=== PATIENT | female | born 1985 | race Caucasian/White ===

== ENCOUNTER → 2023-12-31 | Emergency (ER) | payer BC, OTHER ==
[~2023-12-31] MED LIST: FENTANYL CITR 100 MCG/2 ML ONE; HYDROMORPHONE HCL 1 MG/ML INJ ONE; KETOROLAC 30 MG/ML INJ ONE; MAGNESIUM SULFATE 1 gm IVPB 1 GM/100 ML BAG IV ONE; MORPHINE 4 MG/ML SYR ONE; NA CHLORIDE 0.9% 1,000 ML ONE; ONDANSETRON 4 MG/2 ML VIAL ONE; TAMSULOSIN 0.4 MG SR CAP ONE
--- OUTSIDE RECORDS SUMMARY | 2023-12-31 11:14 | XMS REPORT | Continuity of Care Document ---
Author Name Unknown Address [address] [facility] [address] [place] [address] [facility] thconnect Address [address] [facility] [address] [place] [address] Care Team Providers Care Developer Programmer Name Role Phone PCP, PATIENT DOES NOT HAVE A Primary Care Physic jessica Unavailable Brenda Morales Attending Clinician Unknown, Attending Attending Clinician Unavailab BRENDA Dickerson Attending Clinician Unavailable Doctor Unassigned, Angwin Attending Clinician U Luciana Sibley Attending Clinician Unavailable Physician, No Primary or Family Admitting Clinic jessica Unavailable Payers Payer Name Policy Type Policy Number Effective Date Expirati on Date Source Allergies, Adverse Reactions, Alerts Allergy Name Allergy Type Status Severity Reaction(s) Onset Date Inactive Date Treating Clinician Comments Source No Known Allergie s DA Active U 12-13 00:00: 00 [facility] No Known Allergie s DA Active U 12-13 00:00: 00 [facility] NO KNOWN ALLERGIE S Drug Class Active [facility] Social History Social Habit Start Date Stop Date Quantity Comments Source Sexual orientation U [facility] Sex Assigned At 1985 00:00:00 1985 00:00:00 [facility] Smoking Status Start Date Stop Date Source Tobacco smoking consumption unknown [facility] Medications Ordered Medication Name Filled Medication Name Start Date Stop Date Current Medication? Ordering Clinician Indication Dosage Frequency Signature (SIG) Comments Components Source cefdinir 300 mg capsule -16 00:00: 00 01-07 04:59 :00 Yes [id number] 300mg Take 1 capsule by mouth every 12 (twelve) hours for 7 days. [facility] Vital Signs Vital Name Observation Time Observation Value Comments S ladonnace Systolic blood pressure 2023-12-31 14:33:00 106 mm[Hg[facility] Diastolic blood pressure 2023-12-31 14:33:00 73 mm[Hg] [facility] Heart rate 2023-12-31 14:33:00 52 /min [facility] Body temperature 2023-12-31 14:33:00 36.5 Michelle [facility] Respiratory rate 2023-12-31 14:33:00 20 /min [facility] Body height 2023-12-31 14:33:00 162.6 cm [facility] Body weight 2023-12-31 14:33:00 53.269 kg [facility] BMI 2023-12-31 14:33:00 20.16 kg/m2 [facility] Oxygen saturation in Arterial blood by Pulse oximetry 2023-12-31 14:33:00 100 /min [facility] Procedures Procedure Date / Time Performed Performing Clinicia n Source POCT URINALYSIS 2023-12-31 14:48:00 [facility] 2023-12-31 14:25:55 Docto r Unassigned, Angwin [facility] Plan of Care Planned Activity Planned Date Details Comments Source Encounters Start Date/Time End Date/Time Encounter Type Admission Type Attending Clinicians Care Facility Care Department Encounter ID Source 2023-12-31 09:20:00 2023-12-31 09:40:00 Urgent Care Brenda Simpson Unknown, Attending [facility] LAURA RESENDEZ[facility] [id number] [facility] 2023-12-31 09:20:00 2023-12-31 09:20:00 Outpatient BRENDA VALENTE [facility] [id number] [facility] 2023-12-31 00:00:00 2023-12-31 00:00:00 Orders Only Doctor Unassigned, Angwin [facility] [id number] [facility] 2020-12-30 12:00:00 2020-12-30 12:00:00 Outpatient Luciana Valencia [facility] [id number] [facility] Results Test Description Test Time Test Comments Results Result Co mments Source [facility]
[2023-12-31 11:48] LABS: Absolute Basophils 0.1 K/uL (0-0.5); Absolute Lymphocytes (CBC) 1.1 K/uL (0.7-4.9); Absolute Monocytes 0.8 K/uL (0.1-1.3); Absolute Neutrophil 10.8 K/uL (1.8-8.0); Basophils % 0.4 % (0-1.3); Eosinophils % 0.1 % (0-4.4); Hematocrit 39.3 % (36.0-45.0); Hemoglobin 13.4 g/dL (12.0-15.0); Lymphocytes % 8.3 % (15.3-44.8); MCH 31.6 pg (27.0-35.0); MCHC 34.2 g/dL (32.0-36.0); MCV 92.4 fL (80-100); MPV 7.6 fL (7.6-11.3); Monocytes % 6.3 % (3.3-12.3); Neutrophils % 84.9 % (41.7-73.7); Platelets 259 thou/uL (152-406); RBC Red Blood Cell Count 4.25 M/uL (3.86-4.86); Red Cell Distribution Width 12.9 % (12.1-15.2)
[2023-12-31 11:49] LABS: Sqamous Epithelial <5 /HPF (None Seen); Urine Bacteria None Seen /HPF (<20); Urine Bilirubin NEGATIVE (Negative); Urine Blood Trace (Negative); Urine Clarity Clear (Clear); Urine Color Colorless (Yellow); Urine Culture Reflex Order NOT NEEDED; Urine Glucose NEGATIVE (Negative); Urine Ketones 1+ (Negative); Urine Microscopic Reflex YN ORDER UMIC; Urine Mucus Slight /HPF (None Seen); Urine Nitrite NEGATIVE (Negative); Urine Protein NEGATIVE (Negative); Urine RBC <5 /HPF (None Seen); Urine Urobilinogen Normal (Normal); Urine WBC <5 /HPF (<5)
[2023-12-31 12:05] LABS: Albumin 3.9 g/dL (3.4-5.0); Albumin/Globulin Ratio 1.1 (1.1-1.8); Anion Gap 12.9 mEq/L (5.0-15.0); Bilirubin Total 0.7 mg/dL (0.2-1.0); Globulin 3.4 g/dL (2.3-3.5); Potassium 3.9 mEq/L (3.5-5.1); Protein, Total 7.3 g/dL (6.4-8.2)
--- NOTE | 2023-12-31 12:19 | RAD REPORT ---
EXAM DESCRIPTION: CTAbdomen Pelvis W Contrast - 12/31/2023 12:09 pm CLINICAL HISTORY: Abdominal pain. FLANK PAIN COMPARISON: No comparisons TECHNIQUE: Biphasic CT imaging of the abdomen and pelvis was performed with 100 ml non-ionic IV cont rast. All CT scans are performed using dose optimization technique as appropriate and may include automated exposure control or mA/KV adjustment according to patient size. FINDINGS: The lung bases are clear. The liver, spleen, pancreas, adrenal glands and left kidney are within normal limits. 3 mm calculus i s seen at the right UVJ resulting and moderate right hydronephrosis and hydroureter. No bowel obstruction, free air, free fluid or abscess. IUD is present in the uterus. The appendix is normal. No evidence of significant lymphadenopathy. Trace pelvic free fluid. 6 cm left ovarian cyst suspected. No suspicious bony findings. IMPRESSION: 3 mm stone right UVJ resulting in moderate right hydronephrosis and hydroureter. 6 cm left ovarian cyst.
--- NOTE | 2023-12-31 14:16 | ER ---
Nurse's Notes [facility] Name: Blanche Mahajan Age: 38 yrs Sex: Female : 1985 Arrival Date: 12/31/2023 Time: 11:11 Bed 3 Private MD: Diagnosis: Calculus of kidney with calculus of ureter Presentation: 12/30 11:23 Chief complaint: Patient states: right lower back pain that began this morning. Pt aa5 restless and uncomfortable during triage. Pt also reports nausea. 11:23 Acuity: TEENA 2 aa5 11:23 Coronavirus screen: nausea. Ebola Screen: Patient denies travel to an Ebola-affected [facility] area in the 21 days before illness onset. Initial Sepsis Screen: Does the patient meet any 2 criteria? HR > 90 bpm. Does the patient have a suspected source of infection? No. Patient's initial sepsis screen is negative. Risk Assessment: Do you want to hurt yourself or someone else? Patient reports no desire to harm self or others. Onset of symptoms was December 31, 2023. 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 - Social history:: Smoking status: Patient denies any tobacco usage or history of. Screenin:37 [facility] ED Fall Risk Assessment (Adult) History of falling in the last 3 months, mb9 including since admission No falls in past 3 months (0 pts) Confusion or Disorientation No (0 pts) Intoxicated or Sedated No (0 pts) Impaired Gait No (0 pts) Mobility Assist Device Used No (0 pt) Altered Elimination No (0 pt) Score/Fall Risk Level 0 - 2 = Low Risk Oriented to surroundings, Maintained a safe environment, Educated pt \T\ family on fall prevention, incl call for assistance when getting out of bed. Abuse screen: Denies threats or abuse. Nutritional screening: No deficits noted. Tuberculosis screening: No symptoms or risk factors identified. Assessment: 11:36 General: Appears uncomfortable, Behavior is cooperative, crying. Pain: Complains of mb9 pain in back Pain radiates to right flank and RLQ Pain currently is 10 out of 10 on a pain scale. Pain began suddenly. Neuro: Terrazas Agitation-Sedation Scale (RASS): 0 - Alert and Calm Level of Consciousness is awake, alert, obeys commands, Oriented to person, place, time, situation, Appropriate for age. Cardiovascular: Patient's skin is warm and dry. Respiratory: Airway is patent Respiratory effort is even, unlabored, Respiratory pattern is regular, symmetrical, Breath sounds are clear bilaterally. GI: Abdomen is flat, non-distended, Bowel sounds present X 4 quads. Abd is soft X 4 quads Reports nausea. : Denies burning with urination. EENT: No signs and/or symptoms were reported regarding the EENT system. Derm: Skin is pink, warm \T\ dry. Musculoskeletal: Range of motion: intact in all extremities. 12:27 Reassessment: No changes from previously documented assessment. Patient and/or family mb9 updated on plan of care and expected duration. Pain level reassessed. Patient is alert, oriented x 3, equal unlabored respirations, skin warm/dry/pink. 13:16 Reassessment: No changes from previously documented assessment. Patient and/or family mb9 updated on plan of care and expected duration. Pain level reassessed. Patient is alert, oriented x 3, equal unlabored respirations, skin warm/dry/pink. 14:22 Reassessment: No changes from previously documented assessment. Patient and/or family mb9 updated on plan of care and expected duration. Pain level reassessed. Patient is alert, oriented x 3, equal unlabored respirations, skin warm/dry/pink. Vital Signs: 11:23 BP 123 / 89; Pulse 109; Resp 20 S; Temp 97(TE); Pulse Ox 100% on R/A; Weight 52.62 kg aa5 (R); Height 5 ft. 4 in. (R); 12:26 BP 118 / 78; Pulse 55; Resp 18; Pulse Ox 100% on R/A; mb9 13:17 BP 104 / 74; Pulse 48; Resp 18; Pulse Ox 100% on R/A; mb9 14:13 BP 106 / 74; Pulse 58; Resp 16; Pulse Ox 100% on R/A; Pain 2/10; mb9 11:23 Body Mass Index 19.91 (52.62 kg, 162.56 cm) aa5 14:13 Pain Scale: Adult mb9 ED Course: 11:12 Patient arrived in ED. im 11:21 Jessica Abraham PA-C is PHCP. sb4 11:22 Mike Galvez MD is Attending Physician. sb4 11:23 Arm band placed on. aa5 11:25 Irina Henson, RN is Primary Nurse. mb9 11:27 Triage completed. aa5 11:37 Placed in gown. Bed in low position. Call light in reach. Side rails up X 1. Client mb9 placed on continuous cardiac and pulse oximetry monitoring. NIBP monitoring applied. machine filler on. 11:38 Provided Education on: press call light if needing anything. mb9 11:38 No provider procedures requiring assistance completed. mb9 11:39 Urine collected: clean catch specimen, clear. mc5 11:43 Urinalysis w/ reflexes Sent. ld1 11:43 Test, Urine Sent. ld1 11:43 CMP Sent. ld1 11:43 CBC with Diff Sent. ld1 11:44 Inserted saline lock: 20 gauge in left antecubital area, using aseptic technique. Blood ld1 collected. 12:[address] via stretcher. mb9 12:11 CT Abd/Pelvis - IV Contrast Only In Process Unspecified. EDMS 12:47 Assisted to bedside commode. mb9 14:15 Asael Haines MD is Referral Physician. sb4 14:23 IV discontinued, intact, bleeding controlled, No redness/swelling at site. Pressure mb9 dressing applied. Administered Medications: 11:40 Drug: NS 0.9% IV 1000 ml IV at 1 bolus Per protocol; 1000 mL bolus Route: IV; Rate: 1 mb9 bolus; Site: left antecubital; 12:47 Follow up: Response: No adverse reaction; IV Status: Completed infusion mb9 11:40 Drug: Ondansetron IVP 4 mg IVP once; over 2 minutes Route: IVP; Site: left antecubital; mb9 12:18 Follow up: Response: No adverse reaction mb9 11:42 Drug: morphine IVP or IV 4 mg IVP once over 4 mins Route: IVP; Infused Over: 4 mins; mb9 Site: left antecubital; 12:18 Follow up: Response: No adverse reaction mb9 12:18 Drug: HYDROmorphone IVP 1 mg IVP once Route: IVP; Site: left antecubital; mb9 12:47 Follow up: Response: No adverse reaction mb9 12:26 Drug: Flomax PO 0.4 mg PO once Route: PO; mb9 12:46 Follow up: Response: No adverse reaction mb9 12:26 Drug: Magnesium Sulfate IVPB 1 grams IVPB once over 1 hrs Route: IVPB; Infused Over: 1 mb9 hrs; Site: left antecubital; 13:53 Follow up: Response: No adverse reaction; IV Status: Completed infusion mb9 12:46 Drug: Ketorolac IVP 30 mg IVP once Route: IVP; Site: left antecubital; mb9 13:17 Follow up: Response: No adverse reaction mb9 13:53 Drug: NS 0.9% IV 1000 ml IV at 1 bolus Per protocol; 1000 mL bolus Route: IV; Rate: 1 mb9 bolus; Site: left antecubital; 14:22 Follow up: Response: No adverse reaction; IV Status: Completed infusion mb9 14:02 Not Given (Patient Refused): fentanyl (pf)50 mcg IVP once mb9 Medication: 11:37 VIS not applicable for this client. mb9 Outcome: 14:15 Discharge ordered by . sb4 14:23 Discharged to home ambulatory, with family, mb9 14:23 Condition: stable 14:23 Discharge instructions given to patient, family, Instructed on discharge instructions, follow up and referral plans. Demonstrated understanding of instructions, follow-up care, medications, Prescriptions given X 1, 14:23 Patient left the ED. mb9 Signatures: Dispatcher [employer] EDMS Margaret Thorne RN RN aa5 Radha Worley RN RN [email or web address] Jessica Abraham PA-C PA-C sb4 Irina Henson RN RN mb9 Lula Shepherd Moriah mc5
--- NOTE | 2023-12-31 14:16 | EDPHYS ---
Physician Documentation [facility] Name: Blanche Mahajan Age: 38 yrs Sex: Female : 1985 Arrival Date: 12/31/2023 Time: 11:11 Bed 3 Private MD: ED Physician Mike Galvez HPI: 12/30 11:48 This 38 yrs old Female presents to ER via Ambulatory with complaints of Possible Kidney sb4 Stone. 11:48 Patient states she woke up this morning with severe right-sided flank pain that sb4 radiates to her right lower quadrant. She does endorse nausea, denies any vomiting or fever. Denies any history of kidney stones. Denies any hematuria. States that she has had urinary frequency/urgency but no dysuria. 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 - Social history:: Smoking status: Patient denies any tobacco usage or history of. ROS: 11:48 Constitutional: Negative for fever, chills, and weight loss, sb4 11:48 Abdomen/GI: Positive for nausea, 11:48 Back: Positive for flank pain, on the right, 11:48 : Positive for urinary frequency, 11:48 All other systems are negative, Exam: 11:48 Head/Face: Normocephalic, atraumatic. Eyes: Extra-ocular motions intact. Periorbital sb4 areas with no swelling, redness, or edema. ENT: Mucous membranes moist. Cardiovascular: Regular rate and rhythm with a normal S1 and S2. Respiratory: Lungs have equal breath sounds bilaterally, clear to auscultation and percussion. No rales, rhonchi or wheezes noted. No increased work of breathing, no retractions or nasal flaring. Abdomen/GI: Soft, non-tender, no distension. Skin: Warm, dry with normal turgor. Normal color with no rashes, no lesions, and no evidence of cellulitis. MS/ Extremity: Pulses equal, no cyanosis. Neurovascular intact. Full, normal range of motion. Neuro: Awake and alert, GCS 15, oriented to person, place, time, and situation. Motor strength 5/5 in all extremities. Sensory grossly intact. 11:48 Constitutional: The patient appears alert, awake, in obvious pain, uncomfortable, 11:48 Back: CVA tenderness, that is moderate, is noted on the right, Vital Signs: 11:23 BP 123 / 89; Pulse 109; Resp 20 S; Temp 97(TE); Pulse Ox 100% on R/A; Weight 52.62 kg aa5 (R); Height 5 ft. 4 in. (R); 12:26 BP 118 / 78; Pulse 55; Resp 18; Pulse Ox 100% on R/A; mb9 13:17 BP 104 / 74; Pulse 48; Resp 18; Pulse Ox 100% on R/A; mb9 14:13 BP 106 / 74; Pulse 58; Resp 16; Pulse Ox 100% on R/A; Pain 2/10; mb9 11:23 Body Mass Index 19.91 (52.62 kg, 162.56 cm) aa5 14:13 Pain Scale: Adult mb9 MDM: 11:23 Patient medically screened. sb4 11:48 Differential diagnosis: Nephrolithiasis, ureterolithiasis, hydronephrosis, sb4 pyelonephritis, UTI. 12:28 Data reviewed: vital signs, nurses notes, lab test result(s), radiologic studies, and sb4 as a result, I will discharge patient. Counseling: I had a detailed discussion with the patient and/or guardian regarding the historical points, exam findings, and any diagnostic results supporting the discharge/admit diagnosis, lab results, radiology results, to return to the emergency department if symptoms worsen or persist or if there are any questions or concerns that arise at home. 12/30 11:34 Order name: CBC with Diff; Complete Time: 11:50 sb4 12/30 11:34 Order name: CMP; Complete Time: 12:06 sb4 12/30 11:34 Order name: Test, Urine; Complete Time: 11:48 sb4 12/30 11:34 Order name: Urinalysis w/ reflexes; Complete Time: 11:50 sb4 12/30 11:34 Order name: CT Abd/Pelvis - IV Contrast Only; Complete Time: 12:20 sb4 12/30 11:34 Order name: IV Saline Lock; Complete Time: 11:43 sb4 12/30 11:34 Order name: Labs collected and sent; Complete Time: :43 sb4 Administered Medications: 11:40 Drug: NS 0.9% IV 1000 ml IV at 1 bolus Per protocol; 1000 mL bolus Route: IV; Rate: 1 mb9 bolus; Site: left antecubital; 12:47 Follow up: Response: No adverse reaction; IV Status: Completed infusion mb9 11:40 Drug: Ondansetron IVP 4 mg IVP once; over 2 minutes Route: IVP; Site: left antecubital; mb9 12:18 Follow up: Response: No adverse reaction mb9 11:42 Drug: morphine IVP or IV 4 mg IVP once over 4 mins Route: IVP; Infused Over: 4 mins; mb9 Site: left antecubital; 12:18 Follow up: Response: No adverse reaction mb9 12:18 Drug: HYDROmorphone IVP 1 mg IVP once Route: IVP; Site: left antecubital; mb9 12:47 Follow up: Response: No adverse reaction mb9 12:26 Drug: Flomax PO 0.4 mg PO once Route: PO; mb9 12:46 Follow up: Response: No adverse reaction mb9 12:26 Drug: Magnesium Sulfate IVPB 1 grams IVPB once over 1 hrs Route: IVPB; Infused Over: 1 mb9 hrs; Site: left antecubital; 13:53 Follow up: Response: No adverse reaction; IV Status: Completed infusion mb9 12:46 Drug: Ketorolac IVP 30 mg IVP once Route: IVP; Site: left antecubital; mb9 13:17 Follow up: Response: No adverse reaction mb9 13:53 Drug: NS 0.9% IV 1000 ml IV at 1 bolus Per protocol; 1000 mL bolus Route: IV; Rate: 1 mb9 bolus; Site: left antecubital; 14:22 Follow up: Response: No adverse reaction; IV Status: Completed infusion mb9 14:02 Not Given (Patient Refused): fentanyl (pf)50 mcg IVP once mb9 Disposition: 19:14 Co-signature as Attending Physician, Mike Galvez MD I agree with the assessment and cp3 plan of care. Disposition Summary: 12/31/23 14:15 Discharge Ordered Notes: Location: Home sb4 Problem: new sb4 Symptoms: have improved sb4 Condition: Stable sb4 Diagnosis - Calculus of kidney with calculus of ureter sb4 Followup: sb4 - With: Asael Haines MD - When: As needed - Reason: Recheck today's complaints, Re-evaluation by your physician Discharge Instructions: - Discharge Summary Sheet sb4 - Kidney Stones sb4 - Low-Purine Eating Plan sb4 Forms: - Work release form hb - Thank You Letter sb4 - Prescription Opioid Use sb4 - Patient Portal Instructions sb4 - Leadership Thank You Letter sb4 Prescriptions: - Tramadol 50 mg Oral Tablet - take 1 tablet ORAL route every 8 hours as needed; 12 tablet; Refills: 0, sb4 Product Selection Permitted Signatures: Dispatcher [employer] Mike Purvis MD MD cp3 Margaret Thorne, RN RN aa5 Jessica Abraham, PALonnyC PALonnyC sb4 Irina Henson RN RN mb9
[2023-12-31 14:38] VITALS: BP 106/74; TEMP 97; O2SAT 100
== END ==
LOC: ER 11:11
DX: N20.2 Calculus of kidney with calculus of ureter (principal)
CPT/HCPCS: 96365; 96361; 85025; 81001; 36415; 81025; 80053; 74177; 96375; 99285; Q9967; J3475; J3010; J1170; J2405; J7030 ×2

== ENCOUNTER → 2024-01-01 | Emergency (ER) | payer BC ==
[~2024-01-01] MED LIST changes: -FENTANYL CITR 100 MCG/2 ML ONE; -HYDROMORPHONE HCL 1 MG/ML INJ ONE; +LORAZEPAM 1 MG TABLET ONE; -MAGNESIUM SULFATE 1 gm IVPB 1 GM/100 ML BAG IV ONE; +PROMETHAZINE INJ 25 MG/ML AMP ONE; -TAMSULOSIN 0.4 MG SR CAP ONE
--- OUTSIDE RECORDS SUMMARY | 2024-01-01 10:48 | XMS REPORT | Continuity of Care Document ---
Author Name Unknown Address [address] [facility]. [address] [place] [address] [facility] thconnect Address [address] [facility] [address] [place] [address] Care Team Providers Care Certified Medical Aide Name Role Phone PCP, PATIENT DOES NOT HAVE A Primary Care Physic jessica Unavailable Brenda Morales Attending Clinician Unknown, Attending Attending Clinician Unavailab BRENDA Dickerson Attending Clinician Unavailable Doctor Unassigned, [place] Attending Clinician U navailosmany Javier Attending Clinician Unavailable Luciana Aguilera Attending Clinician Unavailable Adi_Maria E Attending Clinician Unavailable L_Penonur Admitting Clinician Unavailable Physician, No Primary or Family Admitting Clinic jessica Unavailable Adi_Maria E Admitting Clinician Unavailable Payers Payer Name Policy Type Policy Number Effective Date Expirati on Date Source [place] [id number] 2022 00:00:00 Problems Condition Name Condition Details Condition Category Status Onset Date Resolution Date Last Treatment Date Treating Clinician Comments Source Paronychia of finger Paronychia of Finger Problem Active 12-15 00:00: 00 [facility] Abscess of skin and/or subcutaneo us tissue Abscess of Skin And/or Subcutaneo us Tissue Problem Active 12-15 00:00: 00 [facility] Dog bite - wound Dog Bite - Wound Problem Active 12-15 00:00: 00 [facility] Allergies, Adverse Reactions, Alerts Allergy Name Allergy Type Status Severity Reaction(s) Onset Date Inactive Date Treating Clinician Comments Source No Known Allergie s DA Active U 12-13 00:00: 00 [facility] No Known Allergie s DA Active U 12-13 00:00: 00 [facility] NO KNOWN ALLERGIE S Drug Class Active [facility] Social History Social Habit Start Date Stop Date Quantity Comments Source Sexual orientation U [facility] Sex Assigned At 1985 00:00:00 1985 00:00:00 [facility] Smoking Status Start Date Stop Date Source Never Smoker [facility] Tobacco smoking consumption unknown [facility] Medications Ordered Medication Name Filled Medication Name Start Date Stop Date Current Medication? Ordering Clinician Indication Dosage Frequency Signature (SIG) Comments Components Source cefdinir 300 mg capsule 12-30 00:00: 00 01-07 04:59 :00 Yes [id number] 300mg Take 1 capsule by mouth every 12 (twelve) hours for 7 days. [facility] Kenalog 40 mg/mL suspension for injectionTa ke 40 mg by injection route. Kenalog 40 mg/mL suspension for injectionTa ke 40 mg by injection route. 2022-10 11:53: 00 No Kenalog 40 mg/mL suspension for injectionT carlos alberto 40 mg by injection route. [facility] mupirocin 2 % topical ointment APPLY SMALL AMOUNT TOPICALLY TO THE AFFECTED AREA THREE TIMES DAILY mupirocin 2 % topical ointment APPLY SMALL AMOUNT TOPICALLY TO THE AFFECTED AREA THREE TIMES DAILY No mupirocin 2 % topical ointment APPLY SMALL AMOUNT TOPICALLY TO THE AFFECTED AREA THREE TIMES DAILY [facility] Zithromax Z-Nando 250 mg tablet TAKE 2 TABLETS (500 MG) BY ORAL ROUTE ONCE DAILY FOR 1 DAY THEN 1 TABLET (250 MG) BY ORAL ROUTE ONCE DAILY FOR 4 DAYS Zithromax Z-Nando 250 mg tablet TAKE 2 TABLETS (500 MG) BY ORAL ROUTE ONCE DAILY FOR 1 DAY THEN 1 TABLET (250 MG) BY ORAL ROUTE ONCE DAILY FOR 4 DAYS No Zithromax Z-Nando 250 mg tablet TAKE 2 TABLETS (500 MG) BY ORAL ROUTE ONCE DAILY FOR 1 DAY THEN 1 TABLET (250 MG) BY ORAL ROUTE ONCE DAILY FOR [address] [facility] albuterol sulfate HFA 90 mcg/actuati on aerosol inhaler INHALE 2 PUFFS BY MOUTH EVERY 4 HOURS NEEDED albuterol sulfate HFA 90 mcg/actuati on aerosol inhaler INHALE 2 PUFFS BY MOUTH EVERY 4 HOURS NEEDED No albuterol sulfate HFA 90 mcg/actuat ion aerosol inhaler INHALE 2 PUFFS BY MOUTH EVERY [address] [facility] Augmentin 875 mg-125 mg tablet Take 1 tablet every 12 hours by oral route for 7 days. Augmentin 875 mg-125 mg tablet Take 1 tablet every 12 hours by oral route for 7 days. No 1 Q12H Augmentin 875 mg-125 mg tablet Take 1 tablet every 12 hours by oral route for [address] [facility] cephalexin 500 mg capsule Take 1 capsule twice a day by oral route for 7 days. cephalexin 500 mg capsule Take 1 capsule twice a day by oral route for 7 days. No 1capsul e(s) BID cephalexin 500 mg capsule Take 1 capsule twice a day by oral route for [address] [facility] mupirocin 2 % topical ointment APPLY A SMALL AMOUNT TO THE AFFECTED AREA BY TOPICAL ROUTE 3 TIMES PER DAY mupirocin 2 % topical ointment APPLY A SMALL AMOUNT TO THE AFFECTED AREA BY TOPICAL ROUTE 3 TIMES PER DAY No mupirocin 2 % topical ointment APPLY A SMALL AMOUNT TO THE AFFECTED AREA BY TOPICAL ROUTE [address] [facility] albuterol sulfate HFA 90 mcg/actuati on aerosol inhaler INHALE 2 PUFFS BY MOUTH EVERY 4 HOURS NEEDED albuterol sulfate HFA 90 mcg/actuati on aerosol inhaler INHALE 2 PUFFS BY MOUTH EVERY 4 HOURS NEEDED No albuterol sulfate HFA 90 mcg/actuat ion aerosol inhaler INHALE 2 PUFFS BY MOUTH EVERY [address] [facility] mupirocin 2 % topical ointment APPLY SMALL AMOUNT TOPICALLY TO THE AFFECTED AREA THREE TIMES DAILY mupirocin 2 % topical ointment APPLY SMALL AMOUNT TOPICALLY TO THE AFFECTED AREA THREE TIMES DAILY No mupirocin 2 % topical ointment APPLY SMALL AMOUNT TOPICALLY TO THE AFFECTED AREA THREE TIMES DAILY [facility] albuterol sulfate HFA 90 mcg/actuati on aerosol inhaler INHALE 2 PUFFS BY MOUTH EVERY 4 HOURS NEEDED albuterol sulfate HFA 90 mcg/actuati on aerosol inhaler INHALE 2 PUFFS BY MOUTH EVERY 4 HOURS NEEDED No albuterol sulfate HFA 90 mcg/actuat ion aerosol inhaler INHALE 2 PUFFS BY MOUTH EVERY [address] [facility] bromphenira mine-pseudo ephedrine-D M 2 mg-30 mg-10 mg/5 mL oral syrup Take 10 mL every 4-6 hours by oral route as needed. FOR COUGH bromphenira mine-pseudo ephedrine-D M 2 mg-30 mg-10 mg/5 mL oral syrup Take 10 mL every 4-6 hours by oral route as needed. FOR COUGH No 10mL Q5H bromphenir amine-pseu doephedrin e-DM 2 mg-30 mg-10 mg/5 mL oral syrup Take 10 mL every 4-6 hours by oral route as needed. FOR COUGH [facility] mupirocin 2 % topical ointment APPLY SMALL AMOUNT TOPICALLY TO THE AFFECTED AREA THREE TIMES DAILY mupirocin 2 % topical ointment APPLY SMALL AMOUNT TOPICALLY TO THE AFFECTED AREA THREE TIMES DAILY No mupirocin 2 % topical ointment APPLY SMALL AMOUNT TOPICALLY TO THE AFFECTED AREA THREE TIMES DAILY [facility] benzonatate 100 mg capsule Take 2 capsules every 8 hours by oral route as needed. FOR COUGH benzonatate 100 mg capsule Take 2 capsules every 8 hours by oral route as needed. FOR COUGH No 2capsul e(s) Q8H benzonatat e 100 mg capsule Take 2 capsules every 8 hours by oral route as needed. FOR COUGH [facility] bromphenira mine-pseudo ephedrine-D M 2 mg-30 mg-10 mg/5 mL oral syrup TAKE 10 ML BY MOUTH EVERY 4 TO 6 HOURS NEEDED bromphenira mine-pseudo ephedrine-D M 2 mg-30 mg-10 mg/5 mL oral syrup TAKE 10 ML BY MOUTH EVERY 4 TO 6 HOURS NEEDED No bromphenir amine-pseu doephedrin e-DM 2 mg-30 mg-10 mg/5 mL oral syrup TAKE 10 ML BY MOUTH EVERY 4 TO [address] [facility] Kenalog 40 mg/mL suspension for injection Take 40 mg by injection route. Kenalog 40 mg/mL suspension for injection Take 40 mg by injection route. No 40mg Kenalog 40 mg/mL suspension for injection Take 40 mg by injection route. [facility] Medrol (Nando) 4 mg tablets in a dose pack Take 1 dose pk by oral route as directed. Medrol (Nando) 4 mg tablets in a dose pack Take 1 dose pk by oral route as directed. No 1dose pk(s) Medrol (Nando) 4 mg tablets in a dose pack Take 1 dose pk by oral route as directed. [facility] Vital Signs Vital Name Observation Time Observation Value Comments S ource Systolic blood pressure 2023-12-31 14:33:00 106 mm[Hg] [facility] Diastolic blood pressure 2023-12-31 14:33:00 73 mm[Hg] [facility] Heart rate 2023-12-31 14:33:00 52 /min [facility] Body temperature 2023-12-31 14:33:00 36.5 Michelle [facility] Respiratory rate 2023-12-31 14:33:00 20 /min [facility] Body height 2023-12-31 14:33:00 162.6 cm [facility] Body weight 2023-12-31 14:33:00 53.269 kg [facility] BMI 2023-12-31 14:33:00 20.16 kg/m2 [facility] Oxygen saturation in Arterial blood by Pulse oximetry 2023-12-31 14:33:00 100 /min [facility] BP Diastolic 2023-09-01 00:00:00 76 mm[Hg] [facility] Height 2023-09-01 00:00:00 63 [in_i] [facility] BP Systolic 2023-09-01 00:00:00 108 mm[Hg] [facility] Body Weight 2023-09-01 00:00:00 1846.4 [oz_av] [facility] BMI (Body Mass Index) 2023-09-01 00:00:00 20.4 kg/m2 [facility] Height 2023-08-25 00:00:00 63 [in_i] [facility] Body Weight 2023-08-25 00:00:00 1865.6 [oz_av] [facility] BP Diastolic 2023-08-25 00:00:00 67 mm[Hg] [facility] BP Systolic 2023-08-25 00:00:00 101 mm[Hg] [facility] BMI (Body Mass Index) 2023-08-25 00:00:00 20.7 kg/m2 [facility] BP Diastolic 2022-12-31 00:00:00 59 mm[Hg] [facility] Height 2022-12-31 00:00:00 63 [in_i] [facility] BP Systolic 2022-12-31 00:00:00 94 mm[Hg] [facility] Body Weight 2022-12-31 00:00:00 1897.6 [oz_av] [facility] BP Diastolic 2022-12-15 00:00:00 70 mm[Hg] [facility] Height 2022-12-15 00:00:00 63 [in_i] [facility] BMI (Body Mass Index) 2022-12-15 00:00:00 20.7 kg/m2 [facility] BP Systolic 2022-12-15 00:00:00 98 mm[Hg] [facility] Body Weight 2022-12-15 00:00:00 1872 [oz_av] [facility] Procedures Procedure Date / Time Performed Performing Clinicia n Source POCT URINALYSIS 2023-12-31 14:48:00 [facility] OF [facility]ENEFITS 2023-12-31 14:25:55 Docto r Unassigned, [place] [facility] Wrist Arthroscopy/surgery [facility] Extraction of Carlin Tooth [facility] Plan of Care Planned Activity Planned Date Details Comments Source Diagnostic Test Pending 2023-08-25 00:00:00 rapid SARS CoV 2 Ag, QL IA, respiratory specimen [code = rapid SARS CoV 2 Ag, QL IA, respiratory specimen] [facility] Diagnostic Test Pending 2023-08-25 00:00:00 rapid strep group A, throat [code = rapid strep group A, throat] [facility] Diagnostic Test Pending 2023-08-25 00:00:00 rapid flu (A+B) [code = rapid flu (A+B)] [facility] Instructions [facility] Encounters Start Date/Time End Date/Time Encounter Type Admission Type Attending Clinicians Care Facility Care Department Encounter ID Source 2023-12-31 09:20:00 2023-12-31 09:40:00 Urgent Care Brenda Simpson Unknown, Attending [facility] [id number] [facility] 2023-12-31 09:20:00 2023-12-31 09:20:00 Outpatient R BRENDA SIMPSON [facility] [id number] [facility] 2023-12-31 00:00:00 2023-12-31 00:00:00 Orders Only Doctor Unassigned, [place] [facility] [id number] [facility] 2023-12-19 00:00:00 2023-12-19 00:00:00 Outpatient L_Pena [facility] [id number] [facility] 2023-11-14 00:00:00 2023-11-14 00:00:00 Outpatient L_Pena [facility] [id number] [facility] 2023-10-18 00:00:00 2023-10-18 00:00:00 Outpatient L_Pena [facility] [id number] [facility] 2023-10-10 00:00:00 2023-10-10 00:00:00 Outpatient L_Pena [facility] [id number] [facility] 2023-09-05 00:00:00 2023-09-05 00:00:00 Outpatient L_Pena [facility] [id number] [facility] 2023-09-01 00:00:00 2023-09-01 00:00:00 April Ontiveros APRN, MSN, [facility]: [address] [place] [address], [address] [phone] , Ph. [facility] [id number] [facility] 2023-08-25 00:00:00 2023-08-25 00:00:00 April Ontiveros APRN, MSN, [facility]: [address] [place] [address], [address] [phone] , Ph. [facility] [id number] [facility] 2023-01-03 00:00:00 2023-01-03 00:00:00 Outpatient L_Pena [facility] [id number] [facility] 2023-01-03 00:00:00 2023-01-03 00:00:00 Outpatient L_Pena [facility] [id number] [facility] 2023-01-03 00:00:00 2023-01-03 00:00:00 Outpatient L_Pena [facility] [id number] [facility] 2022-12-31 00:00:00 2022-12-31 00:00:00 April Ontiveros APRN, MSN, [facility]: [address] [place] [address], [address] [place] [phone] , Ph. [facility] [id number] [facility] 2022-12-25 00:00:00 2022-12-25 00:00:00 Outpatient L_Pena [facility] [id number] [facility] 2022-12-25 00:00:00 2022-12-25 00:00:00 Outpatient L_Pena [facility] [id number] [facility] 2022-12-16 00:00:00 2022-12-16 00:00:00 Outpatient L_Pena [facility] [id number] [facility] 2022-12-15 00:00:00 2022-12-15 00:00:00 Outpatient L_Pena [facility] [id number] [facility] 2022-12-15 00:00:00 2022-12-15 00:00:00 April Ontiveros APRN, MSN, [facility]: [address] [place] [address], [address] [place] [id number] , Ph. [facility] [id number] [facility] 2022-12-14 00:00:00 2022-12-14 00:00:00 Outpatient L_Pena [facility] [id number] [facility] 2020-12-30 12:00:00 2020-12-30 12:00:00 Outpatient Luciana Valencia [facility] [id number] [facility] 2020-11-19 01:32:00 2020-11-19 01:32:00 Outpatient Carter_C VFP VFP [id number] [facility] Results Test Description Test Time Test Comments Results Result Co mments Source [facility] Ag [Presence] in Respiratory system specimen by Rapid [id number] 11:02:00* Test Item Value Reference Range Interpretation Comme nts SARS CoV 2 (test code = SARS CoV 2) negative [facility]23-08-25 10:51:00* Test Item Value Reference Range Interpretation Comme nts FLU A (test code = FLU A) negative FLU B (test code = FLU B) positive [facility] st[facility] group A, [id number] 10:51:00 * Test Item Value Reference Range Interpretation Comme nts Strep (test code = Strep) negative [facility]
[2024-01-01 11:38] LABS: Hemoglobin 14.7 g/dL (12.0-15.0); MCH 31.7 pg (27.0-35.0); MCHC 34.1 g/dL (32.0-36.0); MCV 92.7 fL (80-100); MPV 8.4 fL (7.6-11.3); Platelets 257 thou/uL (152-406); RBC Red Blood Cell Count 4.63 M/uL (3.86-4.86); Red Cell Distribution Width 13.2 % (12.1-15.2)
[2024-01-01 11:41] LABS: Specific Gravity 1.009 (1.005-1.030); Sqamous Epithelial <5 /HPF (None Seen); Urine Bacteria None Seen /HPF (<20); Urine Bilirubin NEGATIVE (Negative); Urine Blood Trace (Negative); Urine Clarity Clear (Clear); Urine Color Colorless (Yellow); Urine Culture Reflex Order NOT NEEDED; Urine Glucose NEGATIVE (Negative); Urine Ketones 1+ (Negative); Urine Microscopic Reflex YN ORDER UMIC; Urine Nitrite NEGATIVE (Negative); Urine Protein NEGATIVE (Negative); Urine RBC <5 /HPF (None Seen); Urine Urobilinogen Normal (Normal); Urine WBC <5 /HPF (<5); Urine pH 7.5 (5.0-7.0)
[2024-01-01 11:52] LABS: Anion Gap 12.9 mEq/L (5.0-15.0); Potassium 3.9 mEq/L (3.5-5.1)
--- NOTE | 2024-01-01 14:51 | ER ---
Nurse's Notes [facility] Name: Blanche Mahajan Age: 38 yrs Sex: Female : 1985 Arrival Date: 01/01/2024 Time: 10:45 Bed 17 Private MD: Diagnosis: right flank pain;kidney stone Presentation: 12/31 10:58 Chief complaint: Patient states: states she was here yesterday for the same thing but kc6 woke up this morning at 7am with the same pain. crying in triage, rates pain 10/10 to the right lower back and right lower quadrant. Coronavirus screen: At this time, the client does not indicate any symptoms associated with coronavirus-19. Ebola Screen: No symptoms or risks identified at this time. 10:58 Method Of Arrival: Ambulatory [facility] 10:59 Initial Sepsis Screen: Does the patient meet any 2 criteria? No. Patient's initial [facility] sepsis screen is negative. Does the patient have a suspected source of infection? No. Patient's initial sepsis screen is negative. Risk Assessment: Do you want to hurt yourself or someone else? Patient reports no desire to harm self or others. Onset of symptoms was December 31, 2023. 10:59 Acuity: TEENA 3 kc6 Triage Assessment: 10:59 General: Appears in no apparent distress. uncomfortable, well groomed, well developed, kc6 Behavior is cooperative, appropriate for age, crying. Pain: Complains of pain in right low back and right lower quadrant Pain currently is 10 out of 10 on a pain scale. Noted to be crying, resistant to movement. EENT: No signs and/or symptoms were reported regarding the EENT system. Neuro: Level of Consciousness is awake, alert, obeys commands, Oriented to person, place, time, situation, Appropriate for age. Cardiovascular: Capillary refill < 3 seconds. Respiratory: Airway is patent Trachea midline Respiratory effort is even, unlabored, Respiratory pattern is regular, symmetrical. GI: No signs and/or symptoms were reported involving the gastrointestinal system. : No signs and/or symptoms were reported regarding the genitourinary system. Urine is clear. Derm: No signs and/or symptoms reported regarding the dermatologic system. Skin is intact, is healthy with good turgor, Skin is pink, warm \T\ dry. Musculoskeletal: No signs and/or symptoms reported regarding the musculoskeletal system. Circulation, motion, and sensation intact. Capillary refill < 3 seconds, Range of motion: intact in all extremities. Historical: - Allergies: 10:59 No Known Allergies; kc6 - PMHx: 10:59 Asthma; kc6 - PSHx: 10:59 Right tendon from right wrist area; kc6 - Immunization history:: Adult Immunizations up to date. - Social history:: Smoking status: Patient denies any tobacco usage or history of. Screenin:01 [facility] ED Fall Risk Assessment (Adult) History of falling in the last 3 months, kc6 including since admission No falls in past 3 months (0 pts) Confusion or Disorientation No (0 pts) Intoxicated or Sedated No (0 pts) Impaired Gait No (0 pts) Mobility Assist Device Used No (0 pt) Altered Elimination No (0 pt) Score/Fall Risk Level 0 - 2 = Low Risk. Abuse screen: Denies threats or abuse. Denies injuries from another. Nutritional screening: No deficits noted. Tuberculosis screening: No symptoms or risk factors identified. Assessment: 11:01 Reassessment: please see triage. kc6 11:49 Reassessment: Patient appears in no apparent distress at this time. No changes from kc6 previously documented assessment. Patient and/or family updated on plan of care and expected duration. Pain level reassessed. Patient is alert, oriented x 3, equal unlabored respirations, skin warm/dry/pink. 13:04 Reassessment: Patient appears in no apparent distress at this time. No changes from kc6 previously documented assessment. Patient and/or family updated on plan of care and expected duration. Pain level reassessed. Patient is alert, oriented x 3, equal unlabored respirations, skin warm/dry/pink. 13:50 Reassessment: pt appears to be on all fours in the stretcher, crying, reporting 10/10 kc6 pain returned to the same area. Dr. Galvez notified. 14:49 Reassessment: Patient appears in no apparent distress at this time. No changes from kc6 previously documented assessment. Patient and/or family updated on plan of care and expected duration. Pain level reassessed. Patient is alert, oriented x 3, equal unlabored respirations, skin warm/dry/pink. Vital Signs: 10:58 BP 120 / 68; Pulse 64; Resp 16 S; Pulse Ox 100% on R/A; Weight 52.62 kg (R); Height 5 kc6 ft. 4 in. (R); Pain 10/10; 11:49 BP 95 / 64; Pulse 54; Resp 16 S; Pulse Ox 100% on R/A; kc6 12:08 BP 103 / 69; Pulse 56; Resp 18 S; Pulse Ox 100% on R/A; Pain 0/10; kc6 13:40 BP 107 / 72; Pulse 60; Resp 16 S; Pulse Ox 100% on R/A; kc6 14:49 BP 126 / 82; Pulse 59; Resp 18 S; Pulse Ox 100% on R/A; Pain 10/10; kc6 10:58 Body Mass Index 19.91 (52.62 kg, 162.56 cm) kc6 10:58 Pain Scale: Adult kc6 12:08 Pain Scale: Adult kc6 14:49 Pain Scale: Adult kc6 ED Course: 10:46 Patient arrived in ED. mg5 10:48 Mike Galvez MD is Attending Physician. cp3 10:52 Rochelle Caro RN is Primary Nurse. kc6 10:59 Triage completed. kc6 10:59 Arm band placed on. kc6 11:01 Patient has correct armband on for positive identification. Placed in gown. Bed in low kc6 position. Call light in reach. Side rails up X 1. Adult w/ patient. Client placed on continuous cardiac and pulse oximetry monitoring. NIBP monitoring applied. 11:01 Patient maintains SpO2 saturation greater than 95% on room air. kc6 11:11 Inserted saline lock: 20 gauge in right antecubital area, using aseptic technique. kc6 Blood collected. 12:15 Door closed. Noise minimized. Lights dimmed. Warm blanket given. PO fluids given. kc6 14:39 Patient requests pain medication. kc6 14:39 Warm blanket given. kc6 14:51 Asael Haines MD is Referral Physician. cp3 15:01 No provider procedures requiring assistance completed. IV discontinued, intact, kc6 bleeding controlled, No redness/swelling at site. Pressure dressing applied. Administered Medications: 11:34 Drug: LORazepam PO 1 mg PO once Route: PO; kc6 12:07 Follow up: Response: No adverse reaction; Anxiety decreased; RASS: Alert and Calm (0) kc6 11:34 Drug: NS 0.9% IV 1000 ml IV at 1 bolus Per protocol; 1000 mL bolus Route: IV; Rate: 1 kc6 bolus; Site: right antecubital; 12:46 Follow up: Response: No adverse reaction; IV Status: Completed infusion; IV Intake: kc6 1000ml 11:35 Drug: Ketorolac IVP 60 mg IVP once Route: IVP; Site: right antecubital; kc6 12:08 Follow up: Response: No adverse reaction; Pain is decreased kc6 11:35 Drug: morphine IVP or IV 4 mg IVP once over 4 mins Route: IVP; Infused Over: 4 mins; kc6 Site: right antecubital; 12:08 Follow up: Response: No adverse reaction; Pain is decreased; RASS: Alert and Calm (0) kc6 11:35 Drug: Ondansetron IVP 4 mg IVP once; over 2 minutes Route: IVP; Site: right antecubital;kc6 12:08 Follow up: Response: No adverse reaction kc6 13:10 Drug: NS 0.9% IV 1000 ml IV at 1 bolus Per protocol; 1000 mL bolus Route: IV; Rate: 1 kc6 bolus; Site: right antecubital; 14:30 Follow up: Response: No adverse reaction; IV Status: Completed infusion; IV Intake: kc6 1000ml 14:04 Drug: morphine IVP or IV 4 mg IVP once over 4 mins Route: IVP; Infused Over: 4 mins; kc6 Site: right antecubital; 14:31 Follow up: Response: No adverse reaction; Pain is unchanged, physician notified; RASS: kc6 Alert and Calm (0) 14:04 Drug: Promethazine IVP 25 mg IVP once Route: IVP; Site: right antecubital; kc6 14:31 Follow up: Response: No adverse reaction; Nausea is decreased kc6 14:54 Drug: Ketorolac IVP 10 mg 10 mg IVP once Route: IVP; Site: right antecubital; kc6 15:01 Follow up: Response: No adverse reaction kc6 Medication: 15:01 VIS not applicable for this client. kc6 Intake: 12:46 IV: 1000ml; Total: 1000ml. kc6 14:30 IV: 1000ml; Total: 2000ml. kc6 Outcome: 14:51 Discharge ordered by . cp3 15:01 Discharged to home ambulatory, with family, with significant other, 6 15:01 Condition: good 15:01 Discharge instructions given to patient, family, significant other, Instructed on discharge instructions, follow up and referral plans. medication usage, Demonstrated understanding of instructions, follow-up care, medications, Prescriptions given X 1, 15:03 Patient left the ED. kc6 Signatures: Mike Galvez MD MD cp3 Rochelle Caro RN RN [id number] Erin Craig 5
--- NOTE | 2024-01-01 14:51 | EDPHYS ---
Physician Documentation [facility] Name: Blanche Mahajan Age: 38 yrs Sex: Female : 1985 Arrival Date: 01/01/2024 Time: 10:45 Bed 17 Private MD: ED Physician Mike Galvez HPI: 12/31 11:16 This 38 yrs old Female presents to ER via Ambulatory with complaints of Possible Kidney cp3 Stone. 11:16 the patient is a 38 year old female with onset of right flank pain at 7am. patient cp3 diagnosed with a kidney stone yesterday. 3 mm to the right upj with mild hydro. pain relieved when she left and pain became unbearable at 7am. Historical: - Allergies: 10:59 No Known Allergies; kc6 - PMHx: 10:59 Asthma; kc6 - PSHx: 10:59 Right tendon from right wrist area; kc6 - Immunization history:: Adult Immunizations up to date. - Social history:: Smoking status: Patient denies any tobacco usage or history of. ROS: 11:16 Constitutional: Negative for fever, chills, and weight loss, Eyes: Negative for injury, cp3 pain, redness, and discharge, ENT: Negative for injury, pain, and discharge, Neck: Negative for injury, pain, and swelling, Cardiovascular: Negative for chest pain, palpitations, and edema, Respiratory: Negative for shortness of breath, cough, wheezing, and pleuritic chest pain, : Negative for injury, bleeding, discharge, and swelling, MS/Extremity: Negative for injury and deformity, Skin: Negative for injury, rash, and discoloration, Neuro: Negative for headache, weakness, numbness, tingling, and seizure, Psych: Negative for depression, anxiety, suicide ideation, homicidal ideation, and hallucinations, Allergy/Immunology: Negative for hives, rash, and allergies, Endocrine: Negative for neck swelling, polydipsia, polyuria, polyphagia, and marked weight changes, Hematologic/Lymphatic: Negative for swollen nodes, abnormal bleeding, and unusual bruising, 11:16 Back: Positive for flank pain, on the right, Exam: 11:16 Head/Face: Normocephalic, atraumatic. Eyes: Pupils equal round and reactive to light, cp3 extra-ocular motions intact. Lids and lashes normal. Conjunctiva and sclera are non-icteric and not injected. Cornea within normal limits. Periorbital areas with no swelling, redness, or edema. ENT: Nares patent. No nasal discharge, no septal abnormalities noted. Tympanic membranes are normal and external auditory canals are clear. Oropharynx with no redness, swelling, or masses, exudates, or evidence of obstruction, uvula midline. Mucous membranes moist. Neck: Trachea midline, no thyromegaly or masses palpated, and no cervical lymphadenopathy. Supple, full range of motion without nuchal rigidity, or vertebral point tenderness. No Meningismus. Chest/axilla: Normal chest wall appearance and motion. Nontender with no deformity. No lesions are appreciated. Respiratory: Lungs have equal breath sounds bilaterally, clear to auscultation and percussion. No rales, rhonchi or wheezes noted. No increased work of breathing, no retractions or nasal flaring. Abdomen/GI: Soft, non-tender, with normal bowel sounds. No distension or tympany. No guarding or rebound. No evidence of tenderness throughout. Skin: Warm, dry with normal turgor. Normal color with no rashes, no lesions, and no evidence of cellulitis. MS/ Extremity: Pulses equal, no cyanosis. Neurovascular intact. Full, normal range of motion. Neuro: Awake and alert, GCS 15, oriented to person, place, time, and situation. Cranial nerves II-XII grossly intact. Motor strength 5/5 in all extremities. Sensory grossly intact. Cerebellar exam normal. Normal gait. Psych: Awake, alert, with orientation to person, place and time. Behavior, mood, and affect are within normal limits. 11:16 Constitutional: The patient appears uncomfortable, 11:16 : CVA tenderness, on the right, Vital Signs: 10:58 BP 120 / 68; Pulse 64; Resp 16 S; Pulse Ox 100% on R/A; Weight 52.62 kg (R); Height 5 kc6 ft. 4 in. (R); Pain 10/10; 11:49 BP 95 / 64; Pulse 54; Resp 16 S; Pulse Ox 100% on R/A; kc6 12:08 BP 103 / 69; Pulse 56; Resp 18 S; Pulse Ox 100% on R/A; Pain 0/10; kc6 13:40 BP 107 / 72; Pulse 60; Resp 16 S; Pulse Ox 100% on R/A; kc6 14:49 BP 126 / 82; Pulse 59; Resp 18 S; Pulse Ox 100% on R/A; Pain 10/10; kc6 10:58 Body Mass Index 19.91 (52.62 kg, 162.56 cm) kc6 10:58 Pain Scale: Adult kc6 12:08 Pain Scale: Adult kc6 14:49 Pain Scale: Adult kc6 MDM: 10:56 Patient medically screened. cp3 11:16 Differential diagnosis: nephrolithiasis, UTI, diverticulitis. Data reviewed: vital cp3 signs, nurses notes, old medical records, right renal stone at the right upj moderate hydro on right radiologic studies, CT scan. Consideration of Admission/Observation Escalation of care including admission/observation considered. 12:55 ED course: patient feeling better. will continue to monitor pain. cp3 14:55 Response to treatment: the patient's symptoms have markedly improved after treatment. cp3 12/31 11:15 Order name: CBC w/o diff; Complete Time: 12:10 cp3 12/31 11:15 Order name: Basic Metabolic Panel; Complete Time: 12:10 cp3 12/31 11:22 Order name: Urinalysis w/ reflexes; Complete Time: 12:10 kc6 12/31 11:15 Order name: Saline Lock; Complete Time: 11:22 cp3 Administered Medications: 11:34 Drug: LORazepam PO 1 mg PO once Route: PO; kc6 12:07 Follow up: Response: No adverse reaction; Anxiety decreased; RASS: Alert and Calm (0) [facility] 11:34 Drug: NS 0.9% IV 1000 ml IV at 1 bolus Per protocol; 1000 mL bolus Route: IV; Rate: 1 kc6 bolus; Site: right antecubital; 12:46 Follow up: Response: No adverse reaction; IV Status: Completed infusion; IV Intake: kc6 1000ml 11:35 Drug: Ketorolac IVP 60 mg IVP once Route: IVP; Site: right antecubital; kc6 12:08 Follow up: Response: No adverse reaction; Pain is decreased kc6 11:35 Drug: morphine IVP or IV 4 mg IVP once over 4 mins Route: IVP; Infused Over: 4 mins; kc6 Site: right antecubital; 12:08 Follow up: Response: No adverse reaction; Pain is decreased; RASS: Alert and Calm (0) kc6 11:35 Drug: Ondansetron IVP 4 mg IVP once; over 2 minutes Route: IVP; Site: right antecubital;kc6 12:08 Follow up: Response: No adverse reaction kc6 13:10 Drug: NS 0.9% IV 1000 ml IV at 1 bolus Per protocol; 1000 mL bolus Route: IV; Rate: 1 kc6 bolus; Site: right antecubital; 14:30 Follow up: Response: No adverse reaction; IV Status: Completed infusion; IV Intake: kc6 1000ml 14:04 Drug: morphine IVP or IV 4 mg IVP once over 4 mins Route: IVP; Infused Over: 4 mins; kc6 Site: right antecubital; 14:31 Follow up: Response: No adverse reaction; Pain is unchanged, physician notified; RASS: kc6 Alert and Calm (0) 14:04 Drug: Promethazine IVP 25 mg IVP once Route: IVP; Site: right antecubital; kc6 14:31 Follow up: Response: No adverse reaction; Nausea is decreased kc6 14:54 Drug: Ketorolac IVP 10 mg 10 mg IVP once Route: IVP; Site: right antecubital; kc6 15:01 Follow up: Response: No adverse reaction kc6 Disposition Summary: 01/01/24 14:51 Discharge Ordered Condition: Stable cp3 Diagnosis - right flank pain cp3 - kidney stone cp3 Followup: cp3 - With: Asael Haines MD - When: - Reason: Continuance of care Discharge Instructions: - Discharge Summary Sheet cp3 - Kidney Stones cp3 - Dietary Guidelines to Help Prevent Kidney Stones cp3 Forms: - Medication Reconciliation Form cp3 - Thank You Letter cp3 - Antibiotic Education cp3 - Prescription Opioid Use cp3 - Patient Portal Instructions cp3 - Leadership Thank You Letter cp3 Prescriptions: - Valium 5 mg Oral tablet - take 1 tablet ORAL route 3 times per day as needed for muscle spasm; 9 tablet; cp3 Refills: 0, Product Selection Permitted Signatures: Dispatcher [employer] Mike Purvis MD MD cp3 Rochelle Caro RN RN kc6
[2024-01-01 15:29] VITALS: O2SAT 100
[2024-01-01 15:30] VITALS: BP 126/82
== END ==
LOC: ER 10:45
DX: N20.0 Calculus of kidney (principal)
CPT/HCPCS: 81001; 80048; 36415; 85027; J2550; J2405; J7030 ×2; 96361; 96374; 96375; 99285